=== PATIENT | male | born 1980 | race Caucasian/White ===

== ENCOUNTER 2018-01-26 14:22 | Emergency (ER) | payer OTHER ==
[2018-01-26 15:16] VITALS: BP 139/87; PULSE 88; RESP 16; TEMP 98.5
--- NOTE | 2018-01-26 15:34 | ED ---
Lower Extremity Injury HPI - General Chief Complaint: Extremity Injury, Lower Stated Complaint: foot injury-[facility] Time Seen by Provider: 01/26/18 15:21 Source: patient, RN notes reviewed Mode of arrival: ambulatory Limitations: no limitations - History of Present Illness Initial Comments: This a 37-year-old who denies past medical history presents today for chief complaint of left foot pain. Patient states that up 2 hours ago he was at work when a weight fell onto the top of his left foot. He states the weight was about 30 pounds, a brick size and fell from about 3 feet. Pt was sent to [facility] by his corporate human resources manager, where they gave him a tetanus shot, applied boot to the left foot and sent to ER for XR. Pt admitted to pain in the top of his left foot, ecchymosis, superficial abrasion and mild soft tissue swelling. Pt denied numbness, tingling, parathesias, loss of sensation or muscle weakness , coolness of extremity or pain out of proportion, pt denies any ankle pain or pain the toes, stating the pain was localized to the midfoot at the area of contact with weight. Patient denies any recent fever, chills, shortness of breath, chest pain, back pain, abdominal pain, nausea or vomiting, numbness or tingling, dysuria or hematuria, constipation or diarrhea, headaches or visual changes, or any other complaints. - Related Data Home Medications Medication Instructions Recorded Confirmed No Known Home Medications 01/26/18 01/26/18 Allergies Allergy/AdvReac Type Severity Reaction Status Date / Time No Known Allergies Allergy Verified 01/26/18 16:29 Review of Systems ROS Statement: Those systems with pertinent positive or pertinent negative responses have been documented in the HPI. ROS Other: All systems not noted in ROS Statement are negative. Constitutional: Denies: fever, chills ENT: Denies: ear pain Respiratory: Denies: cough, dyspnea Cardiovascular: Denies: chest pain, palpitations Endocrine: Denies: fatigue Gastrointestinal: Denies: abdominal pain, nausea, vomiting Genitourinary: Denies: urgency, dysuria Musculoskeletal: Reports: arthralgia, myalgia. Denies: back pain Skin: Denies: rash, lesions Neurological: Denies: headache, weakness, numbness, paresthesias, confusion, abnormal gait Past Medical History Past Medical History: No Reported History History of Any Multi-Drug Resistant Organisms: None Reported Past Surgical History: Hernia Repair Past Psychological History: No Psychological Hx Reported Smoking Status: Never smoker Past Alcohol Use History: None Reported Past Drug Use History: None Reported General Exam - General Exam Comments Initial Comments: General: The patient is awake and alert, in no distress, and does not appear acutely ill. Eye: Pupils are equal, round and reactive to light, extra-ocular movements are intact. No nystagmus. There is normal conjunctiva bilaterally. No signs of icterus. . Cardiovascular: There is a regular rate and rhythm. No murmur, rub or gallop is appreciated. Respiratory: Lungs are clear to auscultation, respirations are non-labored, breath sounds are equal. No wheezes, stridor, rales, or rhonchi. Musculoskeletal: Contusion to the top of the cause small abrasion. Normal ROM with dorsal and plantar flexion of the feet, and MCP, DIP and PIP of the feet b/ l with 5/5 strength, no tenderness. Sensation intact l/e b/l. DP and PT pulses equal bilaterally 2+. tenderness to palpation over the contusion. No pain over the medial or lateral malleolus or at the ankle joint. Compartment are soft and compressible. Pt has sensation at the web space between the great and 2nd toe of the feet b/l. Neurological: A&O x 3. CN II-XII intact, There are no obvious motor or sensory deficits. Coordination appears grossly intact. Speech is normal. Skin: Skin is warm and dry and no rashes or lesions are noted. Psychiatric: Cooperative, appropriate mood & affect, normal judgment. Limitations: no limitations Course Vital Signs 01/26/18 15:12 Temperature 98.5 F Pulse Rate 88 Respiratory 16 Rate Blood Pressure 139/87 O2 Sat by Pulse 96 Oximetry Medical Decision Making - Medical Decision Making XR obtained of the foot returned (-) for fracture. At this time I feel pt has contusion of the foot/sprain. Pt was instructed to use ibuprofen OTC as needed for pain. Pt recevied a dose while in the hospital. Pt was instructed to follow RICE instruction and to rest the foot for the next 24 hours. Pt was to f/u with PCP in 1-2 days and see orthopedic surgery if symptoms persist for >1 week for repeat imaging. Pt agreed with plan and was discharged in stable condition. Surgical shoe applied to foot. Case was discussed with Dr. Calle prior to d/c. Disposition Clinical Impression: Left foot pain Disposition: HOME SELF-CARE Condition: Good Instructions: Foot Contusion (ED) Additional Instructions: Please use over the counter medication as discussed. Please follow-up with family doctor for orthopedic referral if symptoms persist >7-10 days. Please return to emergency room if the symptoms increase or worsen or for any other concerns, as discussed. Is patient prescribed a controlled substance at d/c from ED?: No Referrals: None,Stated [Primary Care Provider] - 1-2 days [facility] [Provider Group] - 1-2 days Time of Disposition: 16:03
--- NOTE | 2018-01-26 15:54 | XR ---
EXAMINATION TYPE: XR foot complete LT DATE OF EXAM: 01/26/2018 COMPARISON: NONE HISTORY: Pain TECHNIQUE: Three views are submitted. FINDINGS: The osseous structures are intact. There is no acute fracture or dislocation. Hypertrophic change and narrowing the first MTP joint.. IMPRESSION: 1. No acute fracture or dislocation. If symptoms persist, follow-up exam in 7 to 10 days could be ob tained.
[2018-01-26] MEDS ORDERED: IBUPROFEN 600 MG TAB PO STA (16:42)
== END 2018-01-26 17:41 | disposition home or self-care (01) ==
LOC: EC 14:22
DX: S90.32XA Contusion of left foot, initial encounter (principal); W22.8XXA Striking against or struck by other objects, initial encounter
CPT/HCPCS: 99283

== ENCOUNTER 2018-12-27 16:38 | Emergency (ER) | payer OTHER ==
[2018-12-27 17:38] VITALS: PULSE 94; RESP 18; TEMP 98.6
--- NOTE | 2018-12-27 18:28 | ED ---
Head Injury HPI - General Chief complaint: Head Injury Stated complaint: Hit in head with bolt-[facility] Time Seen by Provider: 12/27/18 18:01 Source: patient Mode of arrival: ambulatory Limitations: no limitations - History of Present Illness Initial comments: Patient is a 38-year-old male who presents emergency Department with complaints of a contusion to the left side of his forehead x today. Patient states he was at work and was accidentally hit in the head with a large metal nara. Patient did have on plastic safety Glasses on which did fall off during the impact. Patient denies LOC, blood thinners, changes in vision, nausea, vomiting. Patient denies any pertinent past medical history. Upon arrival patient is alert and oriented sitting comfortably in the bed. Patient denies any other complaints at this time. - Related Data Home Medications Medication Instructions Recorded Confirmed No Known Home Medications 01/26/18 01/26/18 Allergies/Adverse reactions: Allergies Allergy/AdvReac Type Severity Reaction Status Date / Time No Known Allergies Allergy Verified 12/27/18 17:38 Review of Systems ROS Statement: Those systems with pertinent positive or pertinent negative responses have been documented in the HPI. ROS Other: All systems not noted in ROS Statement are negative. Past Medical History Past Medical History: No Reported History History of Any Multi-Drug Resistant Organisms: None Reported Past Surgical History: Hernia Repair Past Psychological History: No Psychological Hx Reported Smoking Status: Never smoker Past Alcohol Use History: None Reported Past Drug Use History: None Reported General Exam - General Exam Comments Initial Comments: GENERAL: Well-appearing, well-nourished and in no acute distress. HEAD: Atraumatic, normocephalic. Patient has small hematoma to the left side of the forehead along with some very mild tenderness. EYES: Pupils equal round and reactive to light, extraocular movements intact, sclera anicteric, conjunctiva are normal. ENT: TMs normal, nares patent, oropharynx clear without exudates. Moist mucous membranes. NECK: Normal range of motion, supple without lymphadenopathy or JVD. LUNGS: Breath sounds clear to auscultation bilaterally and equal. No wheezes rales or rhonchi. HEART: Regular rate and rhythm without murmurs, rubs or gallops. ABDOMEN: Soft, nontender, normoactive bowel sounds. No guarding, no rebound. No masses appreciated. : Deferred EXTREMITIES: Normal range of motion, no pitting or edema. No clubbing or cyanosis. NEUROLOGICAL: Cranial nerves II through XII grossly intact. Normal speech, normal gait. PSYCH: Normal mood, normal affect. SKIN: Warm, Dry, normal turgor, no rashes or lesions noted. Limitations: no limitations Course Vital Signs 12/27/18 12/27/18 17:36 19:00 Temperature 98.6 F 98.6 F Pulse Rate 94 94 Respiratory 18 18 Rate Blood Pressure 149/106 141/81 O2 Sat by Pulse 99 99 Oximetry Medical Decision Making - Medical Decision Making Patient is a 38-year-old male who who was hit in the head with a large metal nara at work. Patient presents with a small hematoma on the left side of his forehead. Patient denies LOC, the on blood thinners, changes in vision, nausea, vomiting. Patient states his headache in the area of the hematoma is a 2-3/ 10. Patient's exam is normal including normal neuro exam. There is no focal neurological deficits. Patient's strength is 5 out of 5 bilateral upper and lower extremities. Case is discussed with Dr. Pozo. Patient will be discharged home. Return parameters were discussed with the patient he verbalized understanding. Disposition Clinical Impression: Hematoma of scalp Disposition: HOME SELF-CARE Condition: Stable Instructions (If sedation given, give patient instructions): Concussion (ED), Hematoma (ED) Additional Instructions: Please return to the Emergency Department if symptoms worsen or any other concerns. Use Tylenol and/or Motrin for pain. Is patient prescribed a controlled substance at d/c from ED?: No Referrals: Nonstaff,Physician [Primary Care Provider] - 1-2 days
[2018-12-27 19:09] VITALS: BP 141/81
== END 2018-12-27 19:05 | disposition home or self-care (01) ==
LOC: EC 16:38
DX: S00.03XA Contusion of scalp, initial encounter (principal); W22.8XXA Striking against or struck by other objects, initial encounter; Y92.69 Other specified industrial and construction area as the place of occurrence of the external cause; Y99.0 Civilian activity done for income or pay
CPT/HCPCS: 99283